=== PATIENT | female | born 1955 | race Caucasian/White ===

== ENCOUNTER → 2019-02-16 | Outpatient (CLI) | payer BC ==
[~2019-02-16] MED LIST: ASPI81CH PO; CIPR500 PO; ENOX40I SC; ESOM20; ESOM20 PO; HYDR1TAB94 PO; Hydrochloroth12.5 MG PO; Lisinopril2.5 MG PO; METO25ER PO; [UNRECOGNIZED DRUG - REMARK]
== END | disposition home or self-care (01) ==
LOC: LAB SHORT 15:58 → LAB EV 15:58
DX: N39.0 Urinary tract infection, site not specified (principal)
CPT/HCPCS: 87077; 87086; 87186

== ENCOUNTER → 2019-03-03 | Outpatient (CLI) | payer BC ==
[2019-03-03 15:07] LABS: Hematocrit 39.1 % (33.0-51.0); Hemoglobin 13.7 g/dL (11.5-16.0); Mean Corpuscular HGB 35.6 pg (26.0-34.0); Mean Corpuscular Volume 102 fL (80-100); Mean Platelet Volume 10.4 fL (9.1-12.4); Platelet Count 259 K/mm3 (150-400); RDW Coefficient Variation 12.3 % (11.7-14.2); RDW Standard Deviation 45.6 fL (35.1-46.3); Red Blood Cell Count 3.85 M/mm3 (3.80-5.20); White Blood Cell Count 18.61 K/mm3 (4.00-11.30)
[2019-03-03 15:28] LABS: Albumin, Blood 2.8 g/dL (3.4-5.0); Albumin/Globulin Ratio 0.7 (0.8-1.8); Bilirubin, Total 0.9 mg/dL (0.1-1.0); Bun/Creatinine Ratio 7.2 (12.0-20.0); Calcium, Blood 8.5 mg/dL (8.5-10.1); Creatinine, Blood 1.52 mg/dL (0.40-1.00); Globulin, Blood 3.8 g/dL (2.2-4.0); Potassium, Blood 3.7 mmol/L (3.5-5.5); Total Protein, Blood 6.6 g/dL (6.4-8.2)
[2019-03-03 16:31] LABS: BAND PERCENT MAN 13 % (0-8); BASOPHILS PERCENT MAN 0 % (0-2); EOSINOPHILS PERCENT MAN 0 % (0-6); LYMPHOCYTES PERCENT MAN 7 % (21-46); METAMYELOCYTE ABSOLUTE MAN 0.74 K/mm3 (0.00-0.00); METAMYELOCYTE PERCENT MAN 4 % (0-0); MONOCYTES ABSOLUTE MAN 0.55 K/mm3 (0.16-1.47); MONOCYTES PERCENT MAN 3 % (4-13); SEG NEUTROPHILS PERCENT MAN 73 % (41-73); TOTAL CELLS COUNTED 100
== END | disposition home or self-care (01) ==
LOC: LAB SHORT 15:01 → LAB EV 15:01
PROVIDERS: Physician Assistant
DX: R06.09 Other forms of dyspnea (principal)
CPT/HCPCS: 80053; 83880; 85025

== ENCOUNTER → 2019-03-04 | Outpatient (CLI) | payer BC ==
[2019-03-04 15:44] LABS: Bun/Creatinine Ratio 15.6 (12.0-20.0); Calcium, Blood 7.9 mg/dL (8.5-10.1); Creatinine, Blood 1.22 mg/dL (0.40-1.00); Potassium, Blood 3.5 mmol/L (3.5-5.5)
== END | disposition home or self-care (01) ==
LOC: LAB SHORT 15:28 → LAB EV 15:28
PROVIDERS: Physician Assistant
DX: R94.4 Abnormal results of kidney function studies (principal)
CPT/HCPCS: 80048

== ENCOUNTER 2020-03-24 12:15 | Inpatient (IN) | payer MEDICARE ==
[~2020-03-24] VITALS: Ht 160 cm; Wt 53.7 kg
[~2020-03-24 12:15] MED LIST changes: -ATOR20 PO; -Aspir 8181 MG PO; -LOSA50 PO; -LOSARTAN POTAS100 M1 PO; -METO100ER PO; -METO25ER PO; -SPIRONOLACTONE50 MG PO; -TICA90TA PO
[2020-03-24 12:40] LABS: Calcium, Ionized (POC) 1.05 mmol/L (1.10-1.46); Chloride (POC) 101 mmol/L (98-108); Glucose (ISTAT POC) 109 mg/dL (70-99); Potassium (POC) 4.4 mmol/L (3.5-5.5); Sodium (POC) 135 mmol/L (135-148); Total CO2 (POC) 25 mmol/L (21-32)
[2020-03-24] MEDS ORDERED: SPIRONOLACTONE50 MG PO (13:21)
[2020-03-24] MEDS ORDERED: METO100ER PO (13:22)
[2020-03-24] MEDS ORDERED: Aspir 8181 MG PO (13:23)
[2020-03-24] MEDS ORDERED: LOSARTAN POTAS100 M1 PO (13:24)
[2020-03-24 15:08] LABS: BASOPHILS ABSOLUTE AUTO 0.04 K/mm3 (0.00-0.23); BASOPHILS PERCENT AUTO 0 % (0-2); EOSINOPHILS ABSOLUTE AUTO 0.02 K/mm3 (0.00-0.68); EOSINOPHILS PERCENT AUTO 0 % (0-6); Hemoglobin 10.8 g/dL (11.5-16.0); IMMATURE GRAN ABSOLUTE AUTO 0.04 K/mm3 (0.00-0.10); IMMATURE GRAN PERCENT AUTO 0 % (0-1); LYMPHOCYTES ABSOLUTE AUTO 0.82 K/mm3 (0.84-5.20); LYMPHOCYTES PERCENT AUTO 8 % (21-46); MONOCYTES ABSOLUTE AUTO 0.49 K/mm3 (0.16-1.47); MONOCYTES PERCENT AUTO 5 % (4-13); Mean Corpuscular HGB 35.3 pg (26.0-34.0); Mean Corpuscular HGB Conc 34.8 g/dL (31.5-36.5); Mean Platelet Volume 10.1 fL (9.1-12.4); NEUTROPHILS PERCENT AUTO 86 % (41-73); Platelet Count 246 K/mm3 (150-400); RDW Coefficient Variation 11.4 % (11.7-14.2); Red Blood Cell Count 3.06 M/mm3 (3.80-5.20); White Blood Cell Count 10.41 K/mm3 (4.00-11.30)
--- NOTE | 2020-03-24 15:10 | NUR ---
RECEIVED PT FROM [facility] S/P PCI WITH 4 STENTS TO RCA. PT HAS HISTORY OF HTN, SHE IS A 1 PPD SMOKER. PT REPORTS HAVING INTERMITTENT JAW PAIN OVER THE LAST WEEK THAT GOT WORSE THIS AM. PT ALSO, REPORTS HAVING LOST OVER 20 LBS WITHOUT TRYING OVER THE PAST "COUPLE" MONTHS. PT IS A&0X3. SHE DENIES PAIN OR SOB. SKIN IS PALE, ZAYAS. ECG SHOWS SR WITH RATE 60'S. MAP TRENDING>65 WITH LEVOPHED @ 4 MCG/MIN-INFUSING VIA #20 GUAGE IV TO LEFT UPPER ARM. DR. THOMAS AWARE. NS @ 150 CC/HR INITIATED. PT RECEIVED 4 LITERS OF IVF IN [facility]. LUNGS COARSE T/O AND DIMINISHED IN THE BASES R>L. PT HAS OCCASIONAL, MOIST COUGH-PRODUCTIVE OF SMALL AMOUNT OF THIN, CLEAR SPUTUM. PT REPORTS INTERMITTENT NAUSEA. TR BAND IN PLACE TO RIGHT RADIAL ARTERY-HEMATOMA NOTED. RIGHT WRIST SWOLLEN, BUT SOFT AND NON TENDER TO TOUCH. FINGERS APPEAR SLIGHTLY DUSKY, BU GOOD PLETH ON SP02 AND PT DENIES NUMBNESS, TINGLING, AND PAIN.
[2020-03-24 15:12] LABS: Mean Corpuscular Volume 101 fL (80-100)
[2020-03-24 15:24] LABS: Alanine Aminotransfer (ALT/SGP 12 U/L (12-78); Albumin, Blood 2.2 g/dL (3.4-5.0); Albumin/Globulin Ratio 0.9 (0.8-1.8); Alk Phos 25 U/L (50-136); Anion Gap 5 mmol/L (6-16); Aspartate Aminotrans (AST/SGOT 95 U/L (12-37); Bilirubin, Total 0.6 mg/dL (0.1-1.0); Blood Urea Nitrogen 7 mg/dL (8-24); Bun/Creatinine Ratio 9.8 (12.0-20.0); CO2, Blood 20 mmol/L (21-32); Chloride, Blood 114 mmol/L (98-108); Creatinine, Blood 0.72 mg/dL (0.40-1.00); Globulin, Blood 2.4 g/dL (2.2-4.0); Glomerular Filtration Rate >60 (60-); Glucose, Blood 105 mg/dL (70-99); Potassium, Blood 2.9 mmol/L (3.5-5.5); Sodium, Blood 139 mmol/L (136-145)
[2020-03-24] MEDS ORDERED: ESOM20 PO (15:56)
[2020-03-24 15:59] LABS: Calcium, Blood 6.2 mg/dL (8.5-10.1); Total Protein, Blood 4.6 g/dL (6.4-8.2)
--- NOTE | 2020-03-24 16:15 | NUR ---
PT CURRENTLY MAINTAINING MAP >65 WITH LEVOPHED ON STANDBY, BUT SBP TRENDING 80'S. #18 EXTENDED DWELL CATHETER PLACED. RIGHT RADIAL SITE WITH INCREASED SWELLING. IT APPEARS MORE FIRM AND IS TENDER TO THE TOUCH. DR. THOMAS NOTIFIED.
--- NOTE | 2020-03-24 16:20 | NUR ---
MANUAL BP CUFF PLACE TO RIGHT ARM AND INLATED TO 10 MMHG ABOVE SYSTOLIC. CUFF INFLATED X 4 MINUTES, THEN DEFLATED FOR ONE MINUTE FOR A TOTAL OF 20 MINUTES. AFTER THE 20 MINUTES, THE SITE WAS NO LONGER TENDER AND SEEMED SOFTER TO PALPATION.
--- NOTE | 2020-03-24 16:55 | NUR ---
DR. THOMAS IN TO SEE PT. V.O. GIVEN TO REPEAT MANUAL CUFF INFLATION OVER TR BAND FOR 4 MINUTES INFLATED AND 1 MINUTE DEFLATED FOR 2 MORE CYCLES.
--- NOTE | 2020-03-24 17:35 | NUR ---
INCREASED SWELLING TO RIGHT RADIAL SITE. THE TOP OF THE RIGHT HAND IS ALSO NO DISCOLORED AND SWOLLEN TR BAND REMOVED AND MANUAL PRESSURE APPLIED TO RIGHT RADIAL ARTERY AND TO THE PUNCTURE SITE ON THE TOP OF THE RIGHT HAND. DR. THOMAS SUMMONED TO THE BEDSIDE. MANUAL CUFF APPLIED X [address] THOMAS. NEW TR BAND PLACED BY DR. THOMAS WITH 15 CC AIR TO CUFF. PT FINGERS DUSKY AND UNABLE TO GET GOOD PLETH FROM SPO2 WAVE[employer]. SANDRA MCHUGH HELD MANUAL PRESSURE TO THE TOP OF THE RIGHT HAND X 5 MINUTES AND THEN REMOVED 2 CC OF AIR FROM THE TR BAND. ONCE THE 2 CC OF AIR REMOVED, PT FINGERS NO LONGER DUSKY AND SPO2 WAVEFORM AND GOOD PLETH RETURNED. PT DENIES NUMBNESS, TINGLING, AND PAIN. PT NOTED ECG IRRITABLE. HR DOWN TO THE 50'S BRIEFLY, AND THEV RUNS OF PSVT NOTED. DR. THOMAS MADE AWARE. ECG, CMP, MG+, AND IONIZED CALCIUM SENT. PT CONTINUES TO DENY JAW OR CHEST PAIN. MAP >65 WITH LEVOPHED @4 MCG/MIN.
--- NOTE | 2020-03-24 18:05 | NUR ---
PT GIVEN ZOFRAN 8 MG IVP X 1 AND THE KCL 40MEQ PO FOR K+ 2.9. THE RESULTS OF THE STAT CHEM PROFILE, MAGNESIUM, AND IONIZED CALCIUM WERE REVIEWED WITH DR. THOMAS. KCL RIDER DISCONTINUED. CALCIUM GLUCONATE 1 GRAM IVPB AND MAGNESIUM 2 GRAMS IVPB ORDERED.
[2020-03-24 18:21] LABS: Alanine Aminotransfer (ALT/SGP 23 U/L (12-78); Albumin, Blood 2.4 g/dL (3.4-5.0); Albumin/Globulin Ratio 0.9 (0.8-1.8); Alk Phos 28 U/L (50-136); Anion Gap 5 mmol/L (6-16); Aspartate Aminotrans (AST/SGOT 265 U/L (12-37); Bilirubin, Total 0.6 mg/dL (0.1-1.0); Blood Urea Nitrogen 7 mg/dL (8-24); Bun/Creatinine Ratio 8.6 (12.0-20.0); CO2, Blood 22 mmol/L (21-32); Calcium, Blood 6.9 mg/dL (8.5-10.1); Chloride, Blood 111 mmol/L (98-108); Creatinine, Blood 0.81 mg/dL (0.40-1.00); Globulin, Blood 2.7 g/dL (2.2-4.0); Glomerular Filtration Rate >60 (60-); Glucose, Blood 112 mg/dL (70-99); Magnesium, Blood 1.2 mg/dL (1.6-2.4); Potassium, Blood 3.7 mmol/L (3.5-5.5); Sodium, Blood 138 mmol/L (136-145); Total Protein, Blood 5.1 g/dL (6.4-8.2)
--- NOTE | 2020-03-24 19:15 | NUR ---
ASSUMED CARE BEDSIDE REPORT RECEIVED. LEVOPHED GTT TO STANDBY AT THIS TIME, WILL MONITOR. PT RESTING QUIETLY RECLINING IN BED, DENIES N/V, DENIES CP/PRESSURE, DENIES SOB/DYSPNEA, DENIES JAW/NECK PAIN, AND DENIES PAIN AT THIS TIME. SHE IS ALERT AND ORIENTED, SPEAKING IN FULL SENTENCES, NO VISIBLE INCREASED WORK OF BREATHING IS NOTED, OCCASIONAL MOIST COUGH, NO SPUTUM VISUALIZED AT THIS TIME. LUNGS ARE CLEAR BILAT UPPER LOBES, DIM MID TO BASES, SATS ARE MAINTAINING ON ROOM AIR. HRR, SINUS NOTED ON MONITOR, RATE LOW 70S HIGH 60S, SBP 110S, MAP MAINTAINING, LEVOPHED GTT WAS AT 2 MCG/MIN TO LEFT UPPER ARM EXTENDED DWELL ACCESS SITE BUT PLACED TO STANDBY AT BEGINNING OF BEDSIDE REPORT, PULSES ARE FULL X 4 EXTREMITIES, BRISK CAP REFILL. NORMOACTIVE BOWEL TONES X 4, ABD SOFT, NO TENDERNESS TO PALP. PT HAS BEEN VOIDING CLEAR YELLOW URINE WITHOUT DIFFICULTY. RIGHT RADIAL ACCESS SITE WITH TR BAND IN PLACE, HEMATOMA PROXIMAL TO TR BAND IS REVIEWED WITH OFFGOING RN, SITE IS WITHIN LINES OF DEMARKATION AND PER DAY SHIFT RN IS SOFTER THAN PREVIOUS, SOME TENDERNESS REMAINS WITH PALPATION, POSTERIOR RIGHT HAND ECCHYMOSIS CONTINUES, FINGERS ARE NOW PINK, REMAIN COOL, BRISK CAP REFILL IS NOTED, BIOX SENSOR IS IN PLACE TO RIGHT HAND WITH GOOD PLETH NOTED ON MONITOR, WILL BEGIN TR BAND DEFLATION AT 1999 AND MONITOR CLOSELY, WILL CLARIFY [address] LOVENOX [address] THOMAS PRIOR TO ADMINISTRATION AND TR BAND DEFLATION.
--- NOTE | 2020-03-24 20:14 | NUR ---
TR BAND DEFLATION 1 ML AIR REMOVED FROM TR BAND, SITE REMAINS STABLE AT THIS TIME, WILL CONT TO MONITOR AND DEFLATE SLOWLY
--- NOTE | 2020-03-24 20:33 | NUR ---
TR BAND DEFLATION RIGHT RADIAL ACCESS SITE REMAINS STABLE AT THIS TIME, 1 ML AIR REMOVED, WILL CONT TO MONITOR.
--- NOTE | 2020-03-24 20:49 | NUR ---
TR BAND DEFLATION SITE REMAINS STABLE, 1ML AIR REMOVED, WILL CONT TO DEFLATE AND MONITOR
--- NOTE | 2020-03-24 21:09 | NUR ---
TR BAND DEFLATION SITE REMAINS STABLE, 1 ML AIR REMOVED FROM TR BAND, WILL CONT TO MONITOR.
--- NOTE | 2020-03-24 21:30 | NUR ---
TR BAND DEFLATION SITE REMAINS STABLE, 1 ML AIR REMOVED FROM TR BAND, WILL CONT TO MONITOR.
--- NOTE | 2020-03-24 22:01 | NUR ---
TR BAND DEFLATION SITE REMAINS STABLE, 1 ML AIR REMOVED, WILL CONT TO MONITOR.
--- NOTE | 2020-03-24 22:16 | NUR ---
TR BAND DEFLATION SITE REMAINS STABLE, 1 ML AIR REMOVED FROM TR BAND, WILL CONT TO MONITOR.
--- NOTE | 2020-03-24 22:43 | NUR ---
TR BAND DEFLATION SITE REMAINS STABLE, 2 ML AIR REMOVED FROM TR BAND, WILL CONT TO MONITOR.
--- NOTE | 2020-03-24 23:03 | NUR ---
TR BAND DEFLATION SITE REMAINS STABLE, BAND DEFLATION COMPLETE AT THIS TIME, WILL CONT TO MONITOR.
--- NOTE | 2020-03-25 00:19 | NUR ---
TR BAND REMOVAL SITE REMAINS STABLE, TR BAND REMOVED, SITE CLEANSED WITH CHLORHEXADINE AND CLEAR DRESSING PLACED, ARM BOARD REMAINS IN PLACE, CONTINUED ACTIVITY RESTRICTIONS EXPLAINED TO PT, UNDERSTANDING VERBALIZED.
[2020-03-25 03:40] LABS: BASOPHILS ABSOLUTE AUTO 0.04 K/mm3 (0.00-0.23); BASOPHILS PERCENT AUTO 1 % (0-2); EOSINOPHILS ABSOLUTE AUTO 0.06 K/mm3 (0.00-0.68); EOSINOPHILS PERCENT AUTO 1 % (0-6); Hematocrit 32.4 % (33.0-51.0); Hemoglobin 11.1 g/dL (11.5-16.0); IMMATURE GRAN ABSOLUTE AUTO 0.04 K/mm3 (0.00-0.10); IMMATURE GRAN PERCENT AUTO 1 % (0-1); LYMPHOCYTES ABSOLUTE AUTO 1.51 K/mm3 (0.84-5.20); LYMPHOCYTES PERCENT AUTO 18 % (21-46); MONOCYTES ABSOLUTE AUTO 0.67 K/mm3 (0.16-1.47); MONOCYTES PERCENT AUTO 8 % (4-13); Mean Corpuscular HGB Conc 34.3 g/dL (31.5-36.5); Mean Corpuscular Volume 102 fL (80-100); Mean Platelet Volume 10.4 fL (9.1-12.4); NEUTROPHILS ABSOLUTE AUTO 6.06 K/mm3 (1.96-9.15); NEUTROPHILS PERCENT AUTO 72 % (41-73); Platelet Count 240 K/mm3 (150-400); RDW Coefficient Variation 11.8 % (11.7-14.2); RDW Standard Deviation 44.1 fL (35.1-46.3); Red Blood Cell Count 3.17 M/mm3 (3.80-5.20); White Blood Cell Count 8.38 K/mm3 (4.00-11.30)
[2020-03-25 03:59] LABS: Alanine Aminotransfer (ALT/SGP 28 U/L (12-78); Albumin, Blood 2.3 g/dL (3.4-5.0); Albumin/Globulin Ratio 0.8 (0.8-1.8); Alk Phos 27 U/L (50-136); Anion Gap 4 mmol/L (6-16); Aspartate Aminotrans (AST/SGOT 294 U/L (12-37); Bilirubin, Total 0.5 mg/dL (0.1-1.0); Blood Urea Nitrogen 5 mg/dL (8-24); Bun/Creatinine Ratio 5.6 (12.0-20.0); CHOL/HDL RATIO 3.6; CO2, Blood 23 mmol/L (21-32); Calcium, Blood 7.2 mg/dL (8.5-10.1); Chloride, Blood 114 mmol/L (98-108); Cholesterol 152 mg/dL (50-200); Globulin, Blood 2.8 g/dL (2.2-4.0); Glomerular Filtration Rate >60 (60-); Glucose, Blood 98 mg/dL (70-99); HDL Cholesterol 42 mg/dL (>39); LDL/HDL RATIO 1.8; Low Density Lipoprotein Chol 74 mg/dL (0-110); Magnesium, Blood 2.2 mg/dL (1.6-2.4); Potassium, Blood 4.1 mmol/L (3.5-5.5); Sodium, Blood 141 mmol/L (136-145); Total Protein, Blood 5.1 g/dL (6.4-8.2); Triglycerides 181 mg/dL (30-160); Very Low Density Lipoprot Chol 36 mg/dL (6-32)
--- NOTE | 2020-03-25 05:51 | NUR ---
PT HAS RESTED QUIETLY THROUGHOUT SHIFT, IS ABLE TO GET UP TO TOILET IND HOWEVER SBA PROVIDED FOR LINE MANAGEMENT ONLY. SHE CONTINUES TO DENY PAIN OTHER THAN TO RIGHT FOREARM HEMATOMA WITH PALPATION. LUNGS REMAIN CLEAR BILAT UPPER LOBES WITH DIM BASES, NO VISIBLE INCREASED WORK OF BREATHING, SHE CONTINUES TO SPEAK IN FULL SENTENCES AND DENY FEELING SOB, OCCASIONAL MOIST COUGH CONTINUES, SATS REMAIN HIGH 90S ON ROOM AIR. HRR, SINUS RHYTHM THROUGHOUT NOC WITH OCCASIONAL RUNS OF V-TACH, LONGEST RUN THIS SHIFT WAS 7 BEATS, LEVOPHED TO STANDBY AT SHIFT CHANGE LAST NOC AND PRESSURES HAVE MAINTAINED STABLE, NO EDEMA IS NOTED, CAP REFILL REMAINS BRISK, HEMATOMA TO RIGHT FOREARM REMAINS STABLE WITH ONLY SMALL INCREASE IN VISIBLE ECCHYMOTIC AREA BUT MARKED SOFTENING OF AREA WITHIN LINES OF DEMARKATION, SHE CONTINUES TO HAVE FULL PULSES X 4 EXTREMITIES. NORMOACTIVE BOWEL TONES CONTINUE, ABD REMAINS SOFT WITHOUT REPORTED TENDERNESS, PT HAS EXPERIENCED SOME SMALL LIQUID STOOLS THIS SHIFT AND SHE STATES THAT SHE HAS HAD DIARRHEA FOR YEARS HOWEVER THIS IS MORE WATERY THAN HER NORMAL. SHE VOIDS CLEAR YELLOW URINE WITHOUT DIFFICULTY. PT DID C/O NAUSEA X 1 AND THIS WAS WELL CONTROLLED WITH ZOFRAN 4 MG IV PER ORDERS.
--- NOTE | 2020-03-25 09:24 | NUR ---
CARE ASSUMED ASSESSMENT COMPLETED, PT CALM AND COOPERATIVE, DENIES PAIN OR C/O AT THIS TIME, SPECIFICALLY DENIES CHEST/JAW/L ARM PAIN OR PRESSURE. HR 60'S SINUS, MAP >65. R RADIAL ACCESS PRECAUTIONS IN PLACE, R HAND PWD, CAP REFILL WNL, RADIAL PULSE STRONG. HEMATOMA NOTED TO R FA AT ACCESS SITE IS SOFT, NO ACTIVE OOZING OR BLEEDING NOTED FROM PUNCTURE SITE, DRESSING CDI. LOVENOX AND OTHER AM MEDS ADMINISTERED PER ORDERS. PT HAS POOR APPETITE THIS MORNING, DENIES NAUSEA, NO LOOSE STOOLS SO FAR THIS SHIFT. TROPONIN TRENDING DOWN BUT REMAINS CRITICAL.
--- NOTE | 2020-03-25 11:22 | NUR ---
UPDATE DR. THOMAS IN TO ASSESS PATIENT, AWARE OF ARRHYTHMIAS YESTERDAY AND THIS AM ON NOC SHIFT. PT STATUS CHANGED TO PCU, P/T ORDERED PER . PT CONTINUES TO DENY CHEST/JAW/ARM PAIN, RADIAL ACCESS SITE UNCHANGED FROM THIS MORNING. VSS.
--- NOTE | 2020-03-25 17:41 | NUR ---
END OF SHIFT PT PCU STATUS, VSS T/O SHIFT, NO ARRHYTHMIAS NOTED. DIARRHEA HAS STOPPED. PT DENIED CP AND SOB TODAY, R FA REMAINS BRUISED, ACCESS SITE IS SOFT, HEMATOMA DISSIPATING, NO ADDITIONAL BLEEDING NOTED. BACK OF R HAND WHERE IV SITE BLED YESTERDAY REMAINS SLIGHTLY SWOLLEN, NO ADDITIONAL BLEEDING NOTED, BOTH SITES ARE TENDER TO PALPATION BUT NOT AT REST. RADIAL ACCESS PRECAUTIONS REMAIN IN PLACE, PT COMPLIANT, WRIST IMMOBILIZER ON. R RADIAL PULSE STRONG, FINGERS WARM, CAP REFILL WNL. PT ALERT AND ORIENTED X4, APPROPRAITE, GAIT STEADY, INDEPENDENT IN ROOM AFTER P/T EVAL. PT TOLERATED MEALS MODERATELY WELL, DENIES NAUSEA OR ABD DISCOMFORT. AWAITING ECHO, DENIES NEEDS AT THIS TIME. REPORT TO ONCOMING SHIFT.
--- NOTE | 2020-03-25 19:05 | NUR ---
ASSUMED CARE OF PT, REPORT RECEIVED. HEMATOMA TO RIGHT FOREARM IS IMPROVED FROM YESTERDAY, DRESSING REMAINS CDI, ARM BOARD REMAINS IN PLACE, PT COMPLIANT WITH RIGHT ARM ACTIVITY RESTRICTIONS AT THIS TIME. PT DENIES CP/PRESSURE, DENIES SOB/DYSPNEA, DENIES CP/PRESSURE, DENIES N/V, DENIES JAW PAIN, REPORTS SENSATION INTACT TO FINGERS AND DENIES NUMBNES/TINGLING, FINGERS ARE PWD WITH BRISK CAP REFILL. HRR, SINUS ON MONITOR, RATE 70-80S, PRESSURES MAINTAINING, NO EDEMA IS NOTED. PT IS SPEAKING IN FULL SENTENCES, LUNGS ARE DIM MID TO BASES BUT OTHERWISE CLEAR THROUGHOUT AT THIS TIME, OCCASIONAL COUGH IS NOTED, SMALL AMOUNT OF CLEAR SPUTUM INTERMITTENTLY PRODUCED, SATS HIGH 90S ON ROOM AIR. NORMOACTIVE BOWEL TONES, ABD SOFT, NO TENDERNESS WITH PALPATION. PT UP TO TOILET NEEDED FOR VOIDS, URINE HAS BEEN CLEAR YELLOW.
--- NOTE | 2020-03-26 06:10 | NUR ---
PT RESTS WELL THROUGHOUT SHIFT, REPORTS THAT SHE HAS SLEPT WELL. SHE CONTINUES TO DENY N/V, CP/PRESSURE, SOB/DYSPNEA, AND JAW PAIN. SHE IS UP TO THE TOILET IND WITH STEADY GAIT AND TOLERATES WELL. LUNGS CONTINUE CLEAR WITH DIM BASES, OCCASIONAL MOIST COUGH CONTINUES, SATS MAINTAIN ON ROOM AIR. SINUS RHYTHM CONTINUES, PRESSURES MAINTAINING, NO EDEMA, SKIN CONT PWD, BRISK CAP REFILL. NORMOACTIVE BOWEL TONES, NO ABD TENDERNESS. VOIDS CLEAR YELLOW URINE WITHOUT DIFFICULTY.
--- NOTE | 2020-03-26 08:30 | NUR ---
ASSESSMENT- PT AWAKE, ALERT, COOPERATIVE. UP TO TOILET IN ROOM. SELF BATH WITH ASSISTANCE AT SINK, TOLERATED ACTIVITY WELL, DENIES ANY SOB OR CHEST OR JAW PAIN. NSR, BP STABLE. RIGHT RADIAL SITE WITH BRUISING, CMS CHECK TO HAND INTACT, PLETH GOOD, FINGERS WARM. SPLINT ON. DR. THOMAS HERE-PLANS FOR ECHO TODAY AND POSSIBLE DISCHARGE. LEFT ARM POWER GLIDE INTACT. NO N/V. VOIDING. USING CALL LIGHT
[2020-03-26] MEDS ORDERED: METO25ER PO (11:02)
[2020-03-26] MEDS ORDERED: TICA90TA PO (11:04)
[2020-03-26] MEDS ORDERED: ATOR20 PO (11:04)
[2020-03-26] MEDS ORDERED: LOSA50 PO (11:06)
--- NOTE | 2020-03-26 12:34 | NUR ---
DR. MARTHA MÉNDEZ FOR DISCHARGE. REVIEWED INSTRUCTIONS WITH PT, MEDICATIONS CALLED TO PHARMACY. POWER GLIDE D/C-PRESSURE HELD UNTIL HEMOSTASIS OBTAINED, SITE DI. RIGHT RADIAL SITE UNCHANGED, BRUISED, SLIGHTLY SWOLLEN, CMS INTACT. REVIEWED PRECAUTIONS WITH PATIENT, STATES UNDERSTANDING. DISCUSSED SMOKING CESSATION, DIET CHANGES, PT STATES WILL TRY TO MAKE CHANGES. WRITTEN INFORMATION GIVEN AND REVIEWED WITH PT.
--- NOTE | 2020-03-26 13:12 | NUR ---
Echocardiogram completed.
== END 2020-03-26 13:15 | disposition home or self-care (01) | DRG 246 ==
LOC: ER 12:15 → ICUW 12:45
PROVIDERS: Internal Medicine Interventional Cardiology; ADMIT Emergency Medicine
PROC: 027 Heart and Great Vessels, Dilation (ICD-10-PCS; principal; 2020-03-24)
PROC: 4A023N7 Measurement of Cardiac Sampling and Pressure, Left Heart, Percutaneous Approach (ICD-10-PCS; 2020-03-24)
PROC: B2111ZZ Fluoroscopy of Multiple Coronary Arteries using Low Osmolar Contrast (ICD-10-PCS; 2020-03-24)
PROC: B241ZZ3 Ultrasonography of Multiple Coronary Arteries, Intravascular (ICD-10-PCS; 2020-03-24)
DX: I21.11 ST elevation (STEMI) myocardial infarction involving right coronary artery (principal); I21.19 ST elevation (STEMI) myocardial infarction involving other coronary artery of inferior wall; R11.2 Nausea with vomiting, unspecified; F17.210 Nicotine dependence, cigarettes, uncomplicated; Z79.82 Long term (current) use of aspirin; I10 Essential (primary) hypertension; J44.9 Chronic obstructive pulmonary disease, unspecified
CPT/HCPCS: 36415; 80047; 80053; 80061; 82330; 83735; 84484; 85014; 85025; 85347; 92921; 92978; 92979; 93005; 93010; 93306; 93458; 97110; 97161; 99152; 99153; 99285-25; A9270; A9270-GY; C1725; C1751; C1753; C1769; C1874; C1887; C1894; C9601; C9606; J0461; J0610; J1644; J1650; J2250; J2405; J3010; J3475; J7030; Q9967

== ENCOUNTER → 2020-03-24 | Outpatient (CLI) | payer MEDICARE ==
[~2020-03-24] MED LIST changes: -ASPI81CH PO; +ATOR20 PO; +Aspir 8181 MG PO; +LOSA50 PO; +LOSARTAN POTAS100 M1 PO; +METO100ER PO; +SPIRONOLACTONE50 MG PO; +TICA90TA PO
[2020-03-24 12:10] LABS: BASOPHILS ABSOLUTE AUTO 0.06 K/mm3 (0.00-0.23); BASOPHILS PERCENT AUTO 1 % (0-2); EOSINOPHILS ABSOLUTE AUTO 0.11 K/mm3 (0.00-0.68); EOSINOPHILS PERCENT AUTO 1 % (0-6); Hematocrit 38.2 % (33.0-51.0); Hemoglobin 13.8 g/dL (11.5-16.0); IMMATURE GRAN ABSOLUTE AUTO 0.04 K/mm3 (0.00-0.10); IMMATURE GRAN PERCENT AUTO 0 % (0-1); LYMPHOCYTES ABSOLUTE AUTO 2.54 K/mm3 (0.84-5.20); LYMPHOCYTES PERCENT AUTO 20 % (21-46); MONOCYTES ABSOLUTE AUTO 0.74 K/mm3 (0.16-1.47); MONOCYTES PERCENT AUTO 6 % (4-13); Mean Corpuscular HGB 35.4 pg (26.0-34.0); Mean Corpuscular HGB Conc 36.1 g/dL (31.5-36.5); Mean Corpuscular Volume 98 fL (80-100); Mean Platelet Volume 10.1 fL (9.1-12.4); NEUTROPHILS ABSOLUTE AUTO 8.95 K/mm3 (1.96-9.15); NEUTROPHILS PERCENT AUTO 72 % (41-73); Platelet Count 314 K/mm3 (150-400); RDW Coefficient Variation 11.5 % (11.7-14.2); RDW Standard Deviation 41.2 fL (35.1-46.3); White Blood Cell Count 12.44 K/mm3 (4.00-11.30)
[2020-03-24 12:51] LABS: Alanine Aminotransfer (ALT/SGP 11 U/L (12-78); Albumin, Blood 3.2 g/dL (3.4-5.0); Albumin/Globulin Ratio 0.9 (0.8-1.8); Alk Phos 35 U/L (50-136); Anion Gap 11 mmol/L (6-16); Aspartate Aminotrans (AST/SGOT 13 U/L (12-37); Bilirubin, Total 0.5 mg/dL (0.1-1.0); Blood Urea Nitrogen 9 mg/dL (8-24); Bun/Creatinine Ratio 9.5 (12.0-20.0); CO2, Blood 21 mmol/L (21-32); Calcium, Blood 8.2 mg/dL (8.5-10.1); Chloride, Blood 103 mmol/L (98-108); Creatinine, Blood 0.95 mg/dL (0.40-1.00); Globulin, Blood 3.4 g/dL (2.2-4.0); Glomerular Filtration Rate >60 (60-); Glucose, Blood 112 mg/dL (70-99); Potassium, Blood 3.7 mmol/L (3.5-5.5); Sodium, Blood 135 mmol/L (136-145); Total Protein, Blood 6.6 g/dL (6.4-8.2); Troponin I <0.015 ng/mL (0.000-0.040)
== END ==
LOC: LAB SHORT 12:06 → LAB EV 12:06
PROVIDERS: Emergency Medicine
DX: R07.9 Chest pain, unspecified (principal)
CPT/HCPCS: 80053; 84484; 85025

== ENCOUNTER → 2024-09-08 | Outpatient (CLI) | payer MEDICARE ==
[~2024-09-08] MED LIST changes: +ATOR20 PO; +Aspir 8181 MG PO; +LOSA50 PO; +LOSARTAN POTAS100 M1 PO; +METO100ER PO; +METO25ER PO; +SPIRONOLACTONE50 MG PO; +TICA90TA PO
[2024-09-18 08:46] LABS: OVA AND PARASITE,FECAL INTERP Negative (Negative)
== END ==
LOC: LAB 08:40 → LAB SHORT 08:40 → LAB FUT 09-04 11:55
PROVIDERS: Family Medicine
DX: B82.9 Intestinal parasitism, unspecified (principal)
CPT/HCPCS: 87177; 87209

== ENCOUNTER → 2024-10-17 | Outpatient (CLI) | payer MEDICARE ==
[2024-10-18 08:46] LABS: BASOPHILS ABSOLUTE AUTO 0.02 K/mm3 (0.00-0.23); BASOPHILS PERCENT AUTO 0 % (0-2); EOSINOPHILS ABSOLUTE AUTO 0.22 K/mm3 (0.00-0.68); EOSINOPHILS PERCENT AUTO 3 % (0-6); Hematocrit 35.6 % (33.0-51.0); Hemoglobin 12.3 g/dL (11.5-16.0); IMMATURE GRAN ABSOLUTE AUTO 0.02 K/mm3 (0.00-0.10); IMMATURE GRAN PERCENT AUTO 0 % (0-1); LYMPHOCYTES ABSOLUTE AUTO 1.91 K/mm3 (0.84-5.20); LYMPHOCYTES PERCENT AUTO 26 % (21-46); MONOCYTES ABSOLUTE AUTO 0.62 K/mm3 (0.16-1.47); MONOCYTES PERCENT AUTO 8 % (4-13); Mean Corpuscular HGB Conc 34.6 g/dL (31.5-36.5); Mean Corpuscular Volume 95 fL (80-100); Mean Platelet Volume 9.8 fL (9.1-12.4); NEUTROPHILS ABSOLUTE AUTO 4.57 K/mm3 (1.96-9.15); NEUTROPHILS PERCENT AUTO 62 % (41-73); Platelet Count 377 K/mm3 (150-400); RDW Coefficient Variation 11.9 % (11.7-14.2); RDW Standard Deviation 42.1 fL (35.1-46.3); Red Blood Cell Count 3.73 M/mm3 (3.80-5.20); White Blood Cell Count 7.36 K/mm3 (4.00-11.30)
[2024-10-18 08:58] LABS: Albumin, Blood 2.7 g/dL (3.4-5.0); Albumin/Globulin Ratio 0.6 (0.8-1.8); Bilirubin, Total 0.2 mg/dL (0.1-1.0); Calcium, Blood 6.7 mg/dL (8.5-10.1); Creatinine, Blood 0.75 mg/dL (0.40-1.00); Globulin, Blood 4.4 g/dL (2.2-4.0); Potassium, Blood 3.5 mmol/L (3.5-5.5); Total Protein, Blood 7.1 g/dL (6.4-8.2); Uric Acid, Blood 3.7 mg/dL (2.6-6.0)
== END ==
LOC: LAB SHORT 18:28 → LAB 18:28
PROVIDERS: Physician Assistant
DX: M13.89 Other specified arthritis, multiple sites (principal); I25.10 Atherosclerotic heart disease of native coronary artery without angina pectoris; I73.9 Peripheral vascular disease, unspecified
CPT/HCPCS: 80053; 84550; 85025; 85651